=== PATIENT | male | born 1955 | race Caucasian/White ===

== ENCOUNTER 2024-05-06 12:52 | Day surgery (SDC) | payer MEDICARE ==
[2024-05-06] MEDS ORDERED: Lidocaine 1% w/Epinephrine 1:100K 20 ML VIAL ONE (13:53)
== END 2024-05-06 14:50 | disposition home or self-care (01) ==
LOC: ULT 12:52
PROVIDERS: ATTEND Otolaryngology Plastic Surgery within the Head & Neck
PROC: 0G9H3ZX Drainage of Right Thyroid Gland Lobe, Percutaneous Approach, Diagnostic (ICD-10-PCS; principal; 2024-05-06)
DX: C73 Malignant neoplasm of thyroid gland (principal)
CPT/HCPCS: 10005; 88173; 88305